=== PATIENT | female | born 1960 | race Caucasian/White ===

== ENCOUNTER 2017-11-24 04:18 | Inpatient (IN) | END 2017-12-20 22:45 | disposition home or self-care (01) | DRG 853 ==

== ENCOUNTER 2018-01-11 04:47 | Inpatient (IN) | END 2018-01-20 14:15 | disposition home or self-care (01) | DRG 854 ==

== ENCOUNTER 2018-02-15 20:32 | Emergency (ER) | END 2018-02-16 07:12 | disposition home or self-care (01) ==

== ENCOUNTER 2018-02-17 03:55 | Inpatient (IN) | END 2018-02-21 13:30 | disposition home or self-care (01) | DRG 202 ==

== ENCOUNTER 2018-06-15 14:38 | Emergency (ER) | END 2018-06-15 18:45 | disposition home or self-care (01) ==

== ENCOUNTER 2019-03-01 10:15 | Inpatient (IN) | payer OTHER ==
[~2019-03-01] VITALS: Wt 56.9 kg
[~2019-03-01 10:15] MED LIST: ALBU8.5H8 INH; ALEN35TA12 PO; AZIT500T2 PO; AZIT500T3 PO; CALC-385 PO; FER325 PO; FLUC100T PO; FOLI-49 PO; IBUP-1542 PO; MET25 PO; PANT40TA3 PO; PRED20TA PO
[2019-03-01] MEDS ORDERED: ONDANSETRON 4 MG INJ IV STA (10:57)
[2019-03-01] MEDS ORDERED: morphine 4 MG/ML VIAL IV STA (10:57)
[2019-03-01] MEDS ORDERED: SODIUM CHLORIDE 0.9% 1L BAG IV* STA (10:57)
[2019-03-01] MEDS ORDERED: VANCOMYCIN 1 GM (PMX) 250 ML IVPB STA (12:02)
[2019-03-01] MEDS ORDERED: CEFEPIME 1GM/50 ML (PMX) 50 ML IVPB STA (12:02)
[2019-03-01] MEDS ORDERED: HYDR200T5 PO (12:36)
[2019-03-01] MEDS ORDERED: PRED5TAB ORAL (12:39)
--- NOTE | 2019-03-01 13:44 | ERD ---
ER Documentation Chief Complaint Chief Complaint abd pain and gen weakness for the past few days. 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 She said that she has had 2 weeks of low blood pressure, abdominal pain, and vomiting. She feels like she has a rash and arthritis flare as well. She denies bleeding. She said her temperature was 100.6 at home. She has headache. She passed out today in the bathroom. Her primary doctor is Dr. Barajas. Upon review of old medical records this is the patient's sixth visit to the ER since 2018. ROS All systems reviewed and are negative except as per history of present illness. Medications Home Meds Reported Medications Prednisone* (Prednisone*) 5 Mg Tab, 1 TAB ORAL DAILY 03/01/19 Hydroxychloroquine Sulfate* (Plaquenil*) 200 Mg Tab, 200 MG PO DAILY, TAB 03/01/19 Methotrexate* (Methotrexate*) 2.5 Mg Tab, 15 MG PO weekly, TAB on monday02/17/18 Folic Acid* (Folic Acid*) 1 Mg Tablet, 1 MG PO DAILY, TAB ONLY MONDAY-MONDAY. 02/17/18 Calcium Carbonate/Vitamin D3 (OYSTER SHELL CALCIUM + D TAB) 1 Each Tablet, 1 EACH PO DAILY, TAB 02/17/18 Discontinued Reported Medications Alendronate Sodium* (Alendronate Sodium*) 35 Mg Tablet, 70 MG PO Q7D, #4 TAB 02/17/18 Discontinued Scripts Azithromycin* (Zithromax*) 500 Mg Tablet, 500 MG PO DAILY for 3 Days, TAB Prov:DEON DIEZ MD 06/15/18 Azithromycin* (Zithromax* Tri-Sunil) 500 Mg Tablet, 500 MG PO DAILY for 3 Days, TAB Prov:SAMINA CHO MD 02/21/18 Fluconazole* (Diflucan*) 100 Mg Tablet, 100 MG PO DAILY for 7 Days, TAB Prov:SAMINA CHO MD 02/21/18 Albuterol Sulfate* (Proair HFA*) 8.5 Gm Hfa.aer.ad, 2 PUFF INH Q4H PRN for WHEEZING AND SOB, #1 INHALER Prov:MARTHA BROWN MD 02/16/18 Pantoprazole* (Protonix*) 40 Mg Tablet.dr, 40 MG PO DAILY for 30 Days, TAB Prov:ZENTSEVVALERIE MoyerA 01/20/18 Prednisone* (Prednisone*) 20 Mg Tab, 60 MG PO DAILY for 30 Days, TAB Prov:MEZENTSEVAJENNIFER 01/20/18 Ferrous Sulfate* (Ferrous Sulfate*) 325 Mg Tabec, 325 MG PO BID for 30 Days, TAB Prov:MEZENTSEVVALERIE MoyerA 01/20/18 Ibuprofen* (Ibuprofen*) 600 Mg Tablet, 600 MG PO BID PRN for PAIN for 30 Days, TAB Prov:SAMINA CHO MD 12/20/17 Allergies Allergies: Coded Allergies: No Known Drug Allergies (Verified Allergy, Unknown, 03/01/19) PMhx/Soc History of Surgery: Yes (thoractomy) Anesthesia Reaction: No Hx Neurological Disorder: No Hx Respiratory Disorders: Yes (PNA, pleural effusion) Hx Cardiac Disorders: Yes (pericardial effusion, prediabetic, borderling htn) Hx Psychiatric Problems: No Hx Miscellaneous Medical Probl: Yes (Stills disease, leukocytosis) Hx Alcohol Use: No Hx Substance Use: No Hx Tobacco Use: No Smoking Status: Never smoker FmHx Family History: No diabetes Physical Exam Vitals Vital Signs Date Temp Pulse Resp B/P (MAP) Pulse Ox O2 O2 Flow FiO2 Time Delivery Rate 03/01/19 Nasal 2 11:43 Cannula 03/01/19 100.0 102 20 110/60 99 10:19 (77) Physical Exam Const: Moderate distress Head: Atraumatic Eyes: Normal Conjunctiva ENT: Normal External Ears, Nose and Mouth. Neck: Full range of motion. No meningismus. Resp: Decreased breath sounds bilaterally Cardio: Regular rate and rhythm, no murmurs Abd: Epigastric tenderness to palpation without rebound or guarding Skin: Pale skin Back: No midline or flank tenderness Ext: No cyanosis, or edema Neur: Awake and alert Psych: Normal Mood and Affect Result Diagram: 03/01/19 1113 03/01/19 1113 Results 24 hrs Laboratory Tests Test 03/01/19 11:13 03/01/19 11:31 White Blood Count 14.9 10^3/ul Red Blood Count 3.93 10^6/ul Hemoglobin 11.6 g/dl Hematocrit 35.2 % Mean Corpuscular Volume 89.6 fl Mean Corpuscular Hemoglobin 29.5 pg Mean Corpuscular Hemoglobin Concent 33.0 g/dl Red Cell Distribution Width 15.3 % Platelet Count 411 10^3/UL Mean Platelet Volume 9.3 fl Immature Granulocytes % 0.400 % Neutrophils % 84.2 % Lymphocytes % 7.0 % Monocytes % 3.7 % Eosinophils % 4.6 % Basophils % 0.1 % Nucleated Red Blood Cells % 0.0 /100WBC Immature Granulocytes # 0.060 10^3/ul Neutrophils # 12.5 10^3/ul Lymphocytes # 1.1 10^3/ul Monocytes # 0.6 10^3/ul Eosinophils # 0.7 10^3/ul Basophils # 0.0 10^3/ul Nucleated Red Blood Cells # 0.0 10^3/ul Prothrombin Time 13.7 Sec Prothrombin Time Ratio 1.1 INR International Normalized Ratio 1.04 Activated Partial Thromboplast Time 41.1 Sec Sodium Level 143 mmol/L Potassium Level 3.9 mmol/L Chloride Level 105 mmol/L Carbon Dioxide Level 26 mmol/L Anion Gap 12 Blood Urea Nitrogen 10 mg/dl Creatinine 0.61 mg/dl Est Glomerular Filtrat Rate mL/min > 60 mL/min Glucose Level 94 mg/dl Calcium Level 9.4 mg/dl Total Bilirubin 0.2 mg/dl Direct Bilirubin 0.00 mg/dl Indirect Bilirubin 0.2 mg/dl Aspartate Amino Transf (AST/SGOT) 21 IU/L Alanine Aminotransferase (ALT/SGPT) 10 IU/L Alkaline Phosphatase 86 IU/L Troponin I < 0.012 ng/ml Total Protein 7.2 g/dl Albumin 3.6 g/dl Globulin 3.60 g/dl Albumin/Globulin Ratio 1.00 Lipase 43 U/L POC Venous Lactate 0.8 mmol/L Current Medications Medications Dose Sig/Sanya Start Time Status Last (Trade) Ordered Route PRN Stop Time Admin Dose Reason Admin Sodium 1,710 ml BOLUS OVER 2 03/01/19 DC 03/01/19 Chloride HOURS STAT 10:57 12:02 (NS) IV* 03/01/19 10:58 Morphine 4 mg ONCE STAT 03/01/19 DC Sulfate IV 10:57 (morphine) 03/01/19 10:58 Ondansetron 4 mg ONCE STAT 03/01/19 DC 03/01/19 HCl (Zofran IV 10:57 12:02 Inj) 03/01/19 10:58 Cefepime HCl 50 ml @ ONCE STAT 03/01/19 DC 100 mls/hr IVPB 12:02 03/01/19 12:31 Vancomycin 250 ml @ ONCE STAT 03/01/19 HCl 125 mls/hr IVPB 12:02 03/01/19 14:01 650 mg ONCE ONCE 03/01/19 UNV Acetaminophen PO 14:00 (Tylenol 03/01/19 14:01 Tab) Ondansetron 4 mg BRIDGE ORDER 03/01/19 HCl (Zofran PRN IV 14:00 Inj) NAUSEA/VOMITI 03/02/19 13:59 NG 650 mg ER BRIDGE 03/01/19 Acetaminophen PRN PO 14:00 (Tylenol .MILD PAIN 03/02/19 13:59 Tab) 1-3 OR TEMP Procedures/MDM Chest x-ray shows pneumonia. EKG read by me: Rate/Rhythm: Regular rate and rhythm at a rate of 94 Intervals: Normal Impression: No evidence of ischemia or arrhythmia Sepsis Documentation: Patient's infectious symptoms have not stabilized and the patient is at risk of rapid decompensation. The patient will be admitted for careful hydration, antibiotic therapy, and infectious source control. SEVERE SEPSIS CRITERIA: Infectious source: Pneumonia End organ damage indicated by: No endorgan damage at this time SEPSIS MANAGEMENT Time of recognition of sepsis: 11:13 AM. Time of recognition of severe sepsis: No severe sepsis at this time. Time of recognition of septic shock: No septic shock at this time. 3 HOUR BUNDLE Blood cultures x 2 before broad-spectrum antibiotics: Yes 30 ml/kg NS bolus completed Initial lactate 0.8 Repeat lactate pending SEPTIC SHOCK ASSESSMENT: No lactic acid > 4.0 No persistent hypotension (SBP < 90 or 40 mmHg drop, MAP < 65) despite 30 mL/kg IV fluid bolus VOLUME REASSESSMENT FOR SEPTIC SHOCK: No septic shock at this time PERSISTENT HYPOTENSION TREATMENT: Comfort care no Central line not Required Vasopressor started not required I considered further perfusion assessment with CVP measurement, SCVO2, bedside ultrasound volume assessment, passive leg raise, trial of further fluid bolus. And proceeded with 30 ml/kg fluid bolus of NSS, broad spectrum antibiotics, and admission. The patient will be admitted to the care of Dr. Enriquez as the patient has [facility] insurance. Both Dr. Enriquez and Dr. Cho and have been messaged via [facility] Critical care time 35 minutes Emergent fluid management while maintaining close respiratory support. Provision of immediate and broad-spectrum antibiotic therapy. Simultaneous assessment for possible sources in order to direct targeted therapy. Consideration for invasive and chemical support to prevent cardiopulmonary collapse. Critical care time is independent of procedures performed. Departure Diagnosis: Primary Impression: Pneumonia Pneumonia type: due to unspecified organism Laterality: unspecified laterality Lung location: unspecified part of lung Qualified Codes: J18.9 - Pneumonia, unspecified organism Additional Impression: Abdominal pain Abdominal location: epigastric Qualified Codes: R10.13 - Epigastric pain Condition: MYLES Merino MD Mar 01, 2019 13:44
[2019-03-01] MEDS ORDERED: ONDANSETRON 4 MG INJ IV PRN (14:00)
[2019-03-01] MEDS ORDERED: ACETAMINOPHEN 325 MG TAB PO PRN ×2 (14:00→21:00)
[2019-03-01] MEDS ORDERED: ACETAMINOPHEN 325 MG TAB PO ONE (14:00)
[2019-03-01 20:30] VITALS: BP 89/54; PULSE 103; RESP 18
--- NOTE | 2019-03-01 20:55 | QN ---
Documentation Comment [id number] TONY OBRIEN MD Mar 01, 2019 20:55
[2019-03-01] MEDS ORDERED: BISACODYL (EC) 5 MG TAB PO PRN (21:00)
[2019-03-01] MEDS ORDERED: NA PHOSPHATE/BIPHOS 133 ML ENEMA PR PRN (21:00)
[2019-03-01] MEDS ORDERED: MAGNESIUM HYDROXIDE 30ML CUP PO PRN (21:00)
[2019-03-01] MEDS ORDERED: NACL 0.9% 3 ML SYG IV SCH (21:00)
[2019-03-01] MEDS ORDERED: DOCUSATE SODIUM 100 MG CAP PO PRN (21:00)
[2019-03-01] MEDS ORDERED: ACETAMINOPHEN 650 MG SUPP PR PRN (21:00)
[2019-03-01] MEDS ORDERED: BISACODYL 10 MG SUPP PR PRN (21:00)
[2019-03-01] MEDS: CEFEPIME 1GM/50 ML (PMX) 50 ML IVPB SCH (22:46)
[2019-03-02 02:00] VITALS: BP 84/47; PULSE 103; RESP 18
[2019-03-02] MEDS ORDERED: MIDODRINE 5 MG TAB ONE (05:43)
[2019-03-02] MEDS: PANTOPRAZOLE (EC) 40 MG TAB PO SCH (05:56)
[2019-03-02] MEDS ORDERED: MIDODRINE 5 MG TAB PO ONE (06:00)
[2019-03-02 07:50] VITALS: BP 93/54; PULSE 75; RESP 16
[2019-03-02] MEDS: ALBUTEROL/IPRATROPIUM (NEB) 3 ML AMP HHN SCH ×3 (08:00→20:00)
[2019-03-02] MEDS: ENOXAPARIN 40 MG/0.4 ML SYG SC SCH (09:17)
[2019-03-02] MEDS: FOLIC ACID 1 MG TAB PO SCH (09:18)
[2019-03-02] MEDS: predniSONE 2.5 MG TAB PO SCH (09:18)
[2019-03-02] MEDS: CEFEPIME 1GM/50 ML (PMX) 50 ML IVPB SCH ×2 (09:18→20:24)
[2019-03-02] MEDS: HYDROXYCHLOROQUINE 200 MG TAB PO SCH (09:18)
[2019-03-02] MEDS: CALCIUM/VITAMIN D (500/200) TAB PO SCH (09:18)
[2019-03-02 14:28] VITALS: BP 82/53; PULSE 82; RESP 16
--- NOTE | 2019-03-02 14:48 | HP ---
Date/Time of Note Date/Time of Note DATE: 03/02/19 TIME: 14:48 Assessment/Plan VTE Prophylaxis Risk score (from Ns)>0 risk: 3 SCD applied (from Ns): Yes Lines/Catheters IV Catheter Type (from Nrs): Peripheral IV Urinary Cath still in place: No Assessment/Plan Result Diagram: 03/02/19 0538 03/02/19 0538 Results 24hrs Laboratory Tests Test 03/01/19 20:15 03/02/19 05:38 Lactic Acid Level 0.8 White Blood Count 11.7 #H Red Blood Count 3.61 L Hemoglobin 10.5 L Hematocrit 32.7 L Mean Corpuscular Volume 90.6 Mean Corpuscular Hemoglobin 29.1 Mean Corpuscular Hemoglobin Concent 32.1 Red Cell Distribution Width 15.7 H Platelet Count 422 H Mean Platelet Volume 9.6 Immature Granulocytes % 0.500 H Neutrophils % 83.5 H Lymphocytes % 7.6 L Monocytes % 2.5 Eosinophils % 5.8 Basophils % 0.1 Nucleated Red Blood Cells % 0.0 Immature Granulocytes # 0.060 H Neutrophils # 9.7 H Lymphocytes # 0.9 Monocytes # 0.3 Eosinophils # 0.7 H Basophils # 0.0 Nucleated Red Blood Cells # 0.0 Sodium Level 141 Potassium Level 3.9 Chloride Level 109 Carbon Dioxide Level 25 Anion Gap 7 Blood Urea Nitrogen 8 Creatinine 0.58 Est Glomerular Filtrat Rate mL/min > 60 Glucose Level 90 Calcium Level 8.6 Total Bilirubin 0.1 L Direct Bilirubin 0.00 Indirect Bilirubin 0.1 Aspartate Amino Transf (AST/SGOT) 22 Alanine Aminotransferase (ALT/SGPT) 14 Alkaline Phosphatase 75 Total Protein 6.1 # Albumin 2.9 L Globulin 3.20 Albumin/Globulin Ratio 0.90 HPI/ROS Admit Date/Time Admit Date/Time Mar 01, 2019 at 13:39 PMH/Family/Social Past Medical History Medications Current Medications Calcium/Vitamin D (Oyster Shell/ Vit-D (500/200)) 1 tab DAILY PO Last administered on 03/02/19at 09:18; Admin Dose 1 TAB; Start 03/02/19 at 09:00 Folic Acid (Folic Acid) 1 mg DAILY PO Last administered on 03/02/19at 09:18; Admin Dose 1 MG; Start 03/02/19 at 09:00 Hydroxychloroquine Sulfate (Plaquenil) 200 mg DAILY PO Last administered on 03/02/19at 09:18; Admin Dose 200 MG; Start 03/02/19 at 09:00 IV Flush (NS 3 ml) 3 ml PER PROTOCOL IV ; Start 03/01/19 at 21:00 Acetaminophen (Tylenol Tab) 650 mg Q6H PRN PO .PAIN 1-3 OR TEMP Last administered on 03/01/19at 22:46; Admin Dose 650 MG; Start 03/01/19 at 21:00 Acetaminophen (Tylenol Supp) 650 mg Q6H PRN NE .PAIN 1-3 OR TEMP; Start 03/01/19 at 21:00 Docusate Sodium (Colace) 100 mg Q12H PRN PO .CONSTIPATION; Start 03/01/19 at 21:00 Magnesium Hydroxide (Milk Of Mag) 30 ml DAILY PRN PO .CONSTIPATION; Start 03/01/19 at 21:00 Bisacodyl (Dulcolax) 5 mg DAILY PRN PO .CONSTIPATION; Start 03/01/19 at 21:00 Bisacodyl (Dulcolax Supp) 10 mg DAILY PRN NE .CONSTIPATION; Start 03/01/19 at 21:00 Sodium Biphosphate/ Sodium Phosphate (Fleet Enema) 133 ml DAILY PRN NE .CONSTIPATION; Start 03/01/19 at 21:00 Pantoprazole (Protonix Tab) 40 mg DAILY@06 PO Last administered on 03/02/19at 05:56; Admin Dose 40 MG; Start 03/02/19 at 06:00 Enoxaparin Sodium (Lovenox) 40 mg DAILY SC Last administered on 03/02/19at 09:17; Admin Dose 40 MG; Start 03/02/19 at 09:00 Cefepime HCl 50 ml @ 100 mls/hr Q12 IVPB Last administered on 03/02/19at 09:18; Admin Dose 100 MLS/HR; Start 03/01/19 at 21:00 Prednisone (Prednisone) 7.5 mg DAILY PO Last administered on 03/02/19at 09:18; Admin Dose 7.5 MG; Start 03/02/19 at 09:00 Albuterol/ Ipratropium (Duoneb) 3 ml Q6HWA RESP THERAPY HHN ; Start 03/02/19 at 08:00 Coded Allergies: No Known Drug Allergies (Verified Allergy, Unknown, 03/01/19) Past Surgical History Past Surgical Hx: other Family History Significant Family History: no pertinent family hx Social History Smoking Status: Never smoker Exam/Review of Systems Vital Signs Vitals Vital Signs Date Temp Pulse Resp B/P (MAP) Pulse Ox O2 O2 Flow FiO2 Time Delivery Rate 03/02/19 99.3 75 16 93/54 (67) 94 Room Air 07:50 03/01/19 2 11:43 Intake and Output 03/01/19 03/01/19 03/02/19 1515:00 23:00 07:00 IntakeIntake Total 50 ml 50 ml BalanceBalance 50 ml 50 ml JENNIFER MORRISON Mar 02, 2019 14:48
--- NOTE | 2019-03-02 14:52 | PN ---
Date/Time of Note Date/Time of Note DATE: 03/02/19 TIME: 14:49 Assessment/Plan VTE Prophylaxis Risk score (from [facility])>0 risk: 3 SCD applied (from [facility]): Yes Pharmacological prophylaxis: LMWH Lines/Catheters IV Catheter Type (from [facility]): Peripheral IV Urinary Cath still in place: No Assessment/Plan Hospital Course 1. SIRS with pneumonia 2. Stills disease 3. S/p thoracotomy left side 2018 4. Normocytic normochromic anemia Assessment/Plan -c/w Cefepime. -start IV fluids due to hypotension -br. treatment. -c/w home meds -DVT proph. Lovenox -GI proph. Protonix -WBC down Result Diagram: 03/02/1953703/02/19537 Results 24hrs Laboratory Tests Test 03/01/19 20:15 03/02/19 05:38 Lactic Acid Level 0.8 White Blood Count 11.7 #H Red Blood Count 3.61 L Hemoglobin 10.5 L Hematocrit 32.7 L Mean Corpuscular Volume 90.6 Mean Corpuscular Hemoglobin 29.1 Mean Corpuscular Hemoglobin Concent 32.1 Red Cell Distribution Width 15.7 H Platelet Count 422 H Mean Platelet Volume 9.6 Immature Granulocytes % 0.500 H Neutrophils % 83.5 H Lymphocytes % 7.6 L Monocytes % 2.5 Eosinophils % 5.8 Basophils % 0.1 Nucleated Red Blood Cells % 0.0 Immature Granulocytes # 0.060 H Neutrophils # 9.7 H Lymphocytes # 0.9 Monocytes # 0.3 Eosinophils # 0.7 H Basophils # 0.0 Nucleated Red Blood Cells # 0.0 Sodium Level 141 Potassium Level 3.9 Chloride Level 109 Carbon Dioxide Level 25 Anion Gap 7 Blood Urea Nitrogen 8 Creatinine 0.58 Est Glomerular Filtrat Rate mL/min > 60 Glucose Level 90 Calcium Level 8.6 Total Bilirubin 0.1 L Direct Bilirubin 0.00 Indirect Bilirubin 0.1 Aspartate Amino Transf (AST/SGOT) 22 Alanine Aminotransferase (ALT/SGPT) 14 Alkaline Phosphatase 75 Total Protein 6.1 # Albumin 2.9 L Globulin 3.20 Albumin/Globulin Ratio 0.90 Subjective 24 Hr Interval Summary Free Text/Dictation weakness Respiratory: cough Exam/Review of Systems Exam Vitals Vital Signs Date Temp Pulse Resp B/P (MAP) Pulse Ox O2 O2 Flow FiO2 Time Delivery Rate 03/02/19 99.3 75 16 93/54 (67) 94 Room Air 07:50 03/01/19 2 11:43 Intake and Output 03/01/19 03/01/19 03/02/19 1515:00 23:00 07:00 IntakeIntake Total 50 ml 50 ml BalanceBalance 50 ml 50 ml Constitutional: alert, oriented Respiratory: clear to auscultation Cardiovascular: regular rate and rhythm Gastrointestinal: soft Results Results 24hrs Laboratory Tests Test 03/01/19 20:15 03/02/19 05:38 Lactic Acid Level 0.8 White Blood Count 11.7 #H Red Blood Count 3.61 L Hemoglobin 10.5 L Hematocrit 32.7 L Mean Corpuscular Volume 90.6 Mean Corpuscular Hemoglobin 29.1 Mean Corpuscular Hemoglobin Concent 32.1 Red Cell Distribution Width 15.7 H Platelet Count 422 H Mean Platelet Volume 9.6 Immature Granulocytes % 0.500 H Neutrophils % 83.5 H Lymphocytes % 7.6 L Monocytes % 2.5 Eosinophils % 5.8 Basophils % 0.1 Nucleated Red Blood Cells % 0.0 Immature Granulocytes # 0.060 H Neutrophils # 9.7 H Lymphocytes # 0.9 Monocytes # 0.3 Eosinophils # 0.7 H Basophils # 0.0 Nucleated Red Blood Cells # 0.0 Sodium Level 141 Potassium Level 3.9 Chloride Level 109 Carbon Dioxide Level 25 Anion Gap 7 Blood Urea Nitrogen 8 Creatinine 0.58 Est Glomerular Filtrat Rate mL/min > 60 Glucose Level 90 Calcium Level 8.6 Total Bilirubin 0.1 L Direct Bilirubin 0.00 Indirect Bilirubin 0.1 Aspartate Amino Transf (AST/SGOT) 22 Alanine Aminotransferase (ALT/SGPT) 14 Alkaline Phosphatase 75 Total Protein 6.1 # Albumin 2.9 L Globulin 3.20 Albumin/Globulin Ratio 0.90 Medications Medication Current Medications Calcium/Vitamin D (Oyster Shell/ Vit-D (500/200)) 1 tab DAILY PO Last administered on 03/02/19at 09:18; Admin Dose 1 TAB; Start 03/02/19 at 09:00 Folic Acid (Folic Acid) 1 mg DAILY PO Last administered on 03/02/19at 09:18; Admin Dose 1 MG; Start 03/02/19 at 09:00 Hydroxychloroquine Sulfate (Plaquenil) 200 mg DAILY PO Last administered on 03/02/19at 09:18; Admin Dose 200 MG; Start 03/02/19 at 09:00 IV Flush (NS 3 ml) 3 ml PER PROTOCOL IV ; Start 03/01/19 at 21:00 Acetaminophen (Tylenol Tab) 650 mg Q6H PRN PO .PAIN 1-3 OR TEMP Last administered on 03/01/19at 22:46; Admin Dose 650 MG; Start 03/01/19 at 21:00 Acetaminophen (Tylenol Supp) [address] .PAIN 1-3 OR TEMP; Start 03/01/19 at 21:00 Docusate Sodium (Colace) 100 mg Q12H PRN PO .CONSTIPATION; Start 03/01/19 at 21:00 Magnesium Hydroxide (Milk Of Mag) 30 ml DAILY PRN PO .CONSTIPATION; Start 03/01/19 at 21:00 Bisacodyl (Dulcolax) 5 mg DAILY PRN PO .CONSTIPATION; Start 03/01/19 at 21:00 Bisacodyl (Dulcolax Supp) [address] .CONSTIPATION; Start 03/01/19 at 21:00 Sodium Biphosphate/ Sodium Phosphate (Fleet Enema) [address] .CONSTIPATION; Start 03/01/19 at 21:00 Pantoprazole (Protonix Tab) 40 mg DAILY@06 PO Last administered on 03/02/19at 05:56; Admin Dose 40 MG; Start 03/02/19 at 06:00 Enoxaparin Sodium (Lovenox) 40 mg DAILY SC Last administered on 03/02/19 09:17; Admin Dose 40 MG; Start 03/02/19 at 09:00 Cefepime HCl 50 ml @ 100 mls/hr Q12 IVPB Last administered on 03/02/19 09:18; Admin Dose 100 MLS/HR; Start 03/01/19 at 21:00 Prednisone (Prednisone) 7.5 mg DAILY PO Last administered on 03/02/19 09:18; Admin Dose 7.5 MG; Start 03/02/19 at 09:00 Albuterol/ Ipratropium (Duoneb) 3 ml Q6HWA RESP THERAPY HHN ; Start 03/02/19 at 08:00 JENNIFER MORRISON Mar 02, 2019 14:52
[2019-03-02] MEDS: DEXTROSE 5%-0.9% NACL 1,000 ML IV SCH (15:06)
[2019-03-02 20:33] VITALS: BP 87/55; PULSE 90; RESP 18
[2019-03-02] MEDS: MIDODRINE 5 MG TAB PO SCH (20:50)
[2019-03-02 23:09] VITALS: BP 96/54; PULSE 81
[2019-03-03 02:00] VITALS: BP 99/55; PULSE 74; RESP 17
[2019-03-03] MEDS: PANTOPRAZOLE (EC) 40 MG TAB PO SCH (06:24)
[2019-03-03] MEDS: ALBUTEROL/IPRATROPIUM (NEB) 3 ML AMP HHN SCH (08:00)
[2019-03-03 08:33] VITALS: BP 90/52; PULSE 86; RESP 18
[2019-03-03] MEDS: CEFEPIME 1GM/50 ML (PMX) 50 ML IVPB SCH (08:56)
[2019-03-03] MEDS: ENOXAPARIN 40 MG/0.4 ML SYG SC SCH (08:57)
[2019-03-03] MEDS: CALCIUM/VITAMIN D (500/200) TAB PO SCH (08:57)
[2019-03-03] MEDS: HYDROXYCHLOROQUINE 200 MG TAB PO SCH (08:58)
[2019-03-03] MEDS: MIDODRINE 5 MG TAB PO SCH (08:58)
[2019-03-03] MEDS: FOLIC ACID 1 MG TAB PO SCH (08:58)
[2019-03-03] MEDS: predniSONE 2.5 MG TAB PO SCH (08:58)
[2019-03-03] MEDS: DEXTROSE 5%-0.9% NACL 1,000 ML IV SCH (11:00)
[2019-03-03 15:11] VITALS: BP 83/54; PULSE 94; RESP 18
--- NOTE | 2019-03-03 15:28 | PDOCDIS ---
Discharge Instructions CONDITION [id number] Patient Condition: [id number] Stable ACTIVITY: [id number] Activity Restrictions: [id number] Slowly Increase Activity FOLLOW UP/APPOINTMENTS Follow-up Plan f/u own pcp 1 wk TONY OBRIEN MD Mar 03, 2019 15:28
[2019-03-03] MEDS ORDERED: LEVO500T10 PO (15:30)
[2019-03-03] MEDS ORDERED: PANT40TA4 PO (15:30)
--- NOTE | 2019-03-03 15:33 | QN ---
Documentation Comment [id number] TONY OBRIEN MD Mar 03, 2019 15:33
--- NOTE | 2019-03-03 17:17 | DS ---
DATE OF ADMISSION: 03/01/2019 DATE OF DISCHARGE: 03/03/2019 Patient was admitted with abdominal pain, noted to have lung infiltrate, but the patient has no fever at home. No shortness of breath, no cough, received empiric antibiotic. Patient's lungs are clear. The patient also noted to have a gallstone asymptomatic with history of Still's disease which patie nt is taking prednisone and Plaquenil. The patient has no cough, no fever. The patient's blood pres sure recorded in the upper extremity was 80 to 90, but patient is asymptomatic with no dizziness and no drowsiness, no passing out. Blood pressure in the leg was checked, it was 117/60. The patient is going to be discharged home. DISCHARGE DIAGNOSES: 1. Questionable lung infiltrate. 2. Cholelithiasis. 3. Still's disease. 4. Leukocytosis, steroid induced. The patient has an asymptomatic low blood pressure. PLAN: To continue home medications which includes: The patient refused midodrine. Continue calcium Vitamin D, folic acid, Plaquenil 200 mg, prednisone, Protonix, Levaquin for 5 days, docusate sodium. Orders were done. DISPOSITION: The patient is stable at the time of discharge to follow up with PCP. Dictated By: TONY CANADA/JOSE Conf#: [id number] DID#: [id number]
--- NOTE | 2019-03-04 06:54 | HP ---
DATE OF ADMISSION: 03/01/2019 HISTORY OF PRESENT ILLNESS: Chinyere Borja is a 58-year-old female who has a history of systemic inflam matory response, bronchitis, sisi in the sputum, anemia, disease - adult onset, history of s inus tachycardia, history of pleural effusion status post left thoracotomy and pulmonary decorticatio n, history of pericardial effusion status post pericardial window. The patient presents to this hosp ital with complaints of ____ with persistent abdominal pain and vomiting. Denies any chills but pat ient's temperature 100.6 at home. Denies any ____. The patient in the ER was seen and noted to have blood pressure of 110/60, temperature 100. The patient's WBC 14.9. The patient is on prednisone. Hematocrit 35.2. PAST MEDICAL HISTORY: As mentioned above, history of disease, history of pleural effusion, sta tus post pericardial window, status post thoracotomy per patient, history of anxiety. ALLERGY HISTORY: NEGATIVE. FAMILY HISTORY: Negative. SOCIAL HISTORY: Negative. MEDICATION HISTORY: At home, patient is on: 1. Calcium. 2. Folic acid. 3. Plaquenil. 4. Methotrexate 2.5. She is on 15 mg weekly. 5. Prednisone 5 mg daily. REVIEW OF SYSTEMS: HEENT: Unremarkable. RESPIRATORY: Mildly short of breath. CARDIOVASCULAR: No chest pain or palpitation. ABDOMEN: Unremarkable. No dyspepsia. EXTREMITIES: No swelling. CENTRAL NERVOUS SYSTEM: Unremarkable. PHYSICAL EXAMINATION: GENERAL: The patient is awake and alert. VITAL SIGNS: Pulse 103, blood pressure 89/54. HEENT: Head is atraumatic, normocephalic. Pupils equal, reactive to light. NECK: Supple. No JVD. LUNGS: Clear with few rhonchi at bases. CARDIOVASCULAR: S1, S2 are normal. ABDOMEN: Soft and nontender. Bowel sounds positive. No palpable mass. EXTREMITIES: No cyanosis, clubbing or edema. CENTRAL NERVOUS SYSTEM: The patient is awake, alert with no focal deficit. LABORATORY DATA: Urine bacteria few. WBC 14.9. IMAGING STUDIES: Ultrasound of the gallbladder shows patient has cholelithiasis Chest x-ray: Patch y left lower lobe infiltrate and possible left lower lobe nodular opacity. IMPRESSION: 1. Lung infiltrate. 2. Leukocytosis. 3. Gallstone. 4. disease. PLAN: To continue oxygen, bronchodilator, antibiotic, PPI. Continue home medication. Dictated By: TONY CANADA/JOSE Conf#: [id number] DID#: [id number]
== END 2019-03-03 16:05 | disposition home or self-care (01) | DRG 195 ==
LOC: E/R 10:15 → PP2 13:39 → CANRESERV 18:07
PROVIDERS: ADMIT Internal Medicine Nephrology; ATTEND Internal Medicine Nephrology
DX: J18.9 Pneumonia, unspecified organism (principal); K80.20 Calculus of gallbladder without cholecystitis without obstruction; M08.20 Juvenile rheumatoid arthritis with systemic onset, unspecified site; T38.0X5A Adverse effect of glucocorticoids and synthetic analogues, initial encounter; D72.829 Elevated white blood cell count, unspecified; D64.9 Anemia, unspecified; R91.8 Other nonspecific abnormal finding of lung field
CPT/HCPCS: 36415; 71045; 76705; 80048; 80053; 81001; 83605; 83690; 84484; 85025; 85610; 85730; 87086; 93005; 96374; J0692; J1650; J2270; J2405; J3370; J7030; J7042; J7512